=== PATIENT | female | born 1975 | race Caucasian/White ===

== ENCOUNTER 2017-01-22 15:23 | Observation (INO) | payer BC ==
[2017-01-22] MEDS ORDERED: ASPIRIN 81 MG (BABY) CHEWABLE TABLET PO ONE (15:33)
[2017-01-22] MEDS ORDERED: ONDANSETRON 4 MG/2 ML VIAL IVP ONE (15:33)
[2017-01-22] MEDS ORDERED: Sodium Chloride 0.9% 1,000 ML PRIMARY IV ONE (15:33)
[2017-01-22] MEDS ORDERED: KETOROLAC 30 MG/1 ML VIAL IVP ONE (15:33)
[2017-01-22 15:40] LABS: BASOPHILS # (AUTO) 0.03 10*3/UL; BASOPHILS % (AUTO) 0.4 % (0-1); EOSINOPHILS # (AUTO) 0.07 10*3/UL; EOSINOPHILS % (AUTO) 0.8 % (0-8); HEMATOCRIT 42.5 % (37.0-47.0); HEMOGLOBIN 14.5 g/dL (12.0-16.0); LYMPHOCYTES # (AUTO) 3.24 10*3/uL; MEAN CORPUSCULAR HEMOGLOBIN 29.3 PG (27-31); MEAN CORPUSCULAR HGB CONC 34.1 g/dL (33-37); MEAN PLATELET VOLUME 9.6 FL (7.4-12.2); MONOCYTES # (AUTO) 0.73 10*3/UL (0.3-0.8); MONOCYTES % (AUTO) 8.7 % (5-15); NEUTROPHILS # (AUTO) 4.32 10*3/UL; NEUTROPHILS % (AUTO) 51.4 % (50-80); RED BLOOD COUNT 4.95 10^6/uL (4.20-5.40)
--- NOTE | 2017-01-22 15:40 | PDOC ---
Chest Pain HPI - General Chief Complaint: Chest Pain Stated Complaint: Chest pain Date Seen by Provider: 01/22/17 Time Seen by Provider: 15:35 Source: Patient Exam Limitations: POSITIVE: No limitations Treatment Prior to Arrival: REPORTS: None Nurse's Notes Reviewed & Considered: Yes - History of Present Illness Initial Comments: Patient walked into the emergency room today with chief complaint of chest pain. Patient awoke this morning approximately 06 30 with chest pain and describes a sharp under left breast and was nonradiating. She has some associated shortness of breath. Awoke began at approximately 9 with return of symptoms. She went back to sleep and awoke at 1:30 PM with return of symptoms and radiation through to her back at that time she decided to come in and be evaluated. He denies any fever chills sweats, nausea vomiting diarrhea, she does have shortness of breath, chest pain. 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 Patient she has history of SVT. She is presently on Cardizem for her SVT. Body Location Affected: REPORTS: Chest Timing: REPORTS: Abrupt Duration: <24 hours Severity: Moderate Context: REPORTS: Sleep Quality: REPORTS: Sharpness, Stabbing Radiation: REPORTS: Back Associated Symptoms: REPORTS: Shortness of Breath Modifying Factors: improves with: None Reported Similar Symptoms Previously: No Recently seen/treated/hospitalized: No Any Prior Injuries Related to Current Complaint?: No - Patient Home Medications Home Medications: Home Medications Omeprazole 40 mg PO DAILY 01/21/14 Diltiazem 24Hr ER [Cardizem Cd] 240 mg PO DAILY 08/23/14 Aspirin 81 mg PO DAILY 01/22/17 - Patient Allergies Allergies/Adverse Reactions: Allergies Allergy/AdvReac Type Severity Reaction Status Date / Time No Known Drug Allergies Allergy NOT Verified 01/22/17 15:29 APPLICABLE Past Medical History - heen HEENT History: Denies History Cardiovascular History: Arrhythmia, Other (please comment) Additional Cardiovasular History: history of going into SVT and having PVC's started 2012 Respiratory History: Other (please comment) Additional Respiratory History: GUERRERO'S ESOPHAGUS, ESOPHAGEAL ULCERS Gastrointestinal History: GERD Additional Gastrointestinal History: GUERRERO'S ESOPHAGUS, ESOPHAGEAL ULCERS Genitourinary History: Recurrent UTI Endocrine History: Denies History Musculoskeletal History: Denies History Prosthesis or Implant: No Neurological History: Denies History Blood Disorders: Denies History Psychiatric History: Denies History History of Sexually Transmitted Diseases: No Cancer History: Denies History History of MDRO: No History of Other Communicable Diseases: No Alcohol Use: Occasionally Substance Use Type: None Previous Surgical History: Yes Type / Date of Surgery: HYSTERECTOMY, TUBAL LIGATION. CHOLECYSTECTOMY Anesthesia Reactions: No Malignant Hyperthermia: No Significant Family History: Heart disease, Cancer, Lung disease ROS - Limitations ROS Limitations: No Limitations Constitution: REPORTS: Denies Symptoms Cardiovascular: REPORTS: Chest Pain, Heart Racing Respiratory: REPORTS: Shortness Of Breath Neurological: REPORTS: Headache Gastrointestinal: REPORTS: Denies GI Symptoms Endocrine: REPORTS: Denies Symptoms Musculoskeletal: REPORTS: Back Pain Genitourinary: REPORTS: Denies Symptoms Eyes: REPORTS: Denies Symptoms ENT: REPORTS: Denies Symptoms Skin: REPORTS: Denies Skin Symptoms Lympathic: REPORTS: Denies Lympathic Symptoms Immunologic: POSITIVE: Denies Symptoms Psychiatric: POSITIVE: Anxiety Chest Pain PE - General Appearance General Appearance: REPORTS: Alert, Cooperative, No Evidence of Trauma, Anxious , Moderate Distress - HEENT HEENT: POSITIVE: Head Inspection Nml, Eyes Inspection Nml, Ears Inspection Nml, Nose Inspection Nml, PERRL, EOMI - Neck Neck: REPORTS: Normal Inspection - Respiratory Respiratory: REPORTS: Breath Sounds Normal, Chest Non-Tender, Wheezes - Cardiovascular Cardiovascular: REPORTS: Regular Rate and Rhythm, Heart Sounds Normal ( Nondisplaced point of maximal impact is palpated.) Peripheral Pulses: Radial (R): 3+, Radial (L): 3+, Dorsalis-pedis (R): 3+, Dorsalis-pedis (L): 3+ - Abdomen Abdomen: Soft: (All Quadrants), Normal Bowel Sounds: (All Quadrants), Denies Tenderness: (All Quadrants) - Skin Skin: REPORTS: Intact, Normal For Race, Warm, Dry, No Rash - Extremities Extremity: Non-Tender: (All Extremities), Normal ROM: (All Extremities), Normal Inspection: (All Extremities) - Neurological / Psychological Neurological: POSITIVE: Affect Apporpriate, Oriented X3 Chest Pain Progress - Results Reviewed by me Xrays/CTs/US Reviewed by me: Yes Discussed with Radiologist: No Lab Results Reviewed: Yes Lab Results:: Laboratory Results 01/22/17 01/22/17 01/22/17 Range/Units 15:30 16:19 16:32 WBC 8.41 (4.8-10.8) 10^3/uL RBC 4.95 (4.20-5.40) 10^6/uL Hgb 14.5 (12.0-16.0) g/dL Hct 42.5 (37.0-47.0) % MCV 85.9 (81-99) FL MCH 29.3 (27-31) PG MCHC 34.1 (33-37) g/dL RDW Std Deviation 39.3 (39-50) fL RDW Coeff of Agnieszka 12.7 (11.5-14.5) % Plt Count 287 (140-350) 10*3/uL MPV 9.6 (7.4-12.2) FL Immature Gran % (Auto) 0.2 (0-5) % Neut % (Auto) 51.4 (50-80) % Lymph % (Auto) 38.5 (10-50) % [place] % (Auto) 8.7 (5-15) % Eos % (Auto) 0.8 (0-8) % Baso % (Auto) 0.4 (0-1) % Immature Gran # (Auto) 0.02 10*3/UL Neut # (Auto) 4.32 10*3/UL Lymph # (Auto) 3.24 10*3/uL [place] # (Auto) 0.73 (0.3-0.8) 10*3/UL Eos # (Auto) 0.07 10*3/UL Baso # (Auto) 0.03 10*3/UL WBC Morphology Comment Normal morphology (NORM) Plt Morphology Comment Normal morphology (NORM) RBC Morph Comment Normal morphology (NORM) ESR 2 (0-20) MM/HR D-Dimer 0.20 (0.00-0.59) mg/L Sodium 141 (135-145) meq/L Potassium 3.5 L (3.8-5.2) meq/L Chloride 107 (98-112) meq/L Carbon Dioxide 21 L (23-33) meq/L Anion Gap 13 (5-20) BUN 10 (7-22) mg/dL Creatinine 0.6 (0.50-1.20) mg/dL Estimated GFR > 60 (>60 ml/min/1.73m(2)) BUN/Creatinine Ratio 16.66 (6-20) Glucose 98 (78-110) mg/dL Calculated Osmolality 290.0 (267-292) mOsm/kg Calcium 9.4 (8.7-10.7) mg/dL Magnesium 1.8 (1.6-2.4) mg/dL Total Bilirubin 0.6 (0.3-1.2) mg/dL AST 29 (8-39) IU/L ALT 21 (9-52) IU/L Alkaline Phosphatase 85 (38-126) IU/L Troponin I < 0.012 (< 0.040) ng/mL C-Reactive Protein 0.6 (0.0-0.9) mg/dL Total Protein 7.4 (6.1-8.0) g/dL Albumin 4.4 (3.5-4.8) g/dL Globulin 3.0 (2.50-4.10) g/dL Albumin/Globulin Ratio 1.40 (1.3-2.0) mg/g TSH 0.770 (0.2700-4.2000) uIU/mL EKG Interpretation:: POSITIVE: Normal Sinus Rhythm - Patient's Progress Pain Medication Addressed: POSITIVE: Yes Re-Examine Time: 16:42 Status: POSITIVE: Improved MDM / ED Course: Patient was examined, an IV started, chest x-ray obtained, EKG obtained, blood drawn and sent to the lab for studies. ER course: Patient received an IV of normal saline, sublingual nitroglycerin. First 2 doses of sublingual nitroglycerin resulted in significant improvement of her pain. Her pain began to return and she received a third dose of sublingual nitroglycerin with resolution of pain. She received Toradol, and Zofran. Findings: Troponin is normal, EKG is normal sinus rhythm per my interpretation. Chest x-ray per my review shows no acute cardiopulmonary decompensation. Magnesium is normal, TSH is normal, inflammatory markers of CRP and ESR are both normal. CBC is unremarkable, comprehensive metabolic panel is within normal limits. Assessment: Chest pain relieved with sublingual nitroglycerin, admission for rule out acute coronary syndrome. Plan: Admission. Quality Measure Initiative: CP/AMI: POSITIVE: EKG, ASA Quality Measure Initiative: CAP: POSITIVE: CXR or CT - Consult Consult (If Yes, Name of Consulting MD & Time Called): Yes (Dr. Christina 16:40) Consulting MD will see pt:: POSITIVE: [facility] [place] Admit Counseled: POSITIVE: Patient, Family, RE: Lab Results, RE: Radiology Results, RE : DX Patient Care Time - Estimated PCT Patient Care Time (In Minutes): 30 Vital Signs - Recent Vital Signs Vital Signs: Vital Signs (Last 8 hours) Temp Pulse Pulse Resp BP Pulse Ox 01/22/17 15:25 75 01/22/17 15:23 97.1 F 87 17 127/85 97 - VS Reviewed Vital Signs Reviewed: Yes Discharge Clinical Impression: Chest pain Discharge Disposition: Admit to Inpatient Condition: Stable Date Decision to Admit to Inpatient: 01/22/17 Time Decision to Admit to Inpatient: 16:43
[2017-01-22] MEDS: NITROGLYCERIN 0.4 MG SL TAB (BOTTLE OF 3) SL ONE ×2 (15:47→16:05)
[2017-01-22 15:48] LABS: BLOOD UREA NITROGEN 10 mg/dL (7-22); BUN/CREATININE RATIO 16.66 (6-20); C-REACTIVE PROTEIN 0.6 mg/dL (0.0-0.9); CALCIUM 9.4 mg/dL (8.7-10.7); EST GLOMERULAR FILTRATION > 60 (>60 ml/min/1.73m(2)); MAGNESIUM 1.8 mg/dL (1.6-2.4); SERUM ALBUMIN 4.4 g/dL (3.5-4.8)
[2017-01-22 15:49] LABS: PLATELET MORPHOLOGY COMMENT NORMAL MORPHOLOGY (NORM); RBC MORPHOLOGY COMMENT NORMAL MORPHOLOGY (NORM); WBC MORPHOLOGY COMMENT NORMAL MORPHOLOGY (NORM)
[2017-01-22 16:24] LABS: ERYTHROCYTE SEDIMENTATION RATE 2 MM/HR (0-20)
[2017-01-22] MEDS ORDERED: Famotidine Inj 20 MG in Normal Saline Flush 10 ML IVP ONE (16:50)
[2017-01-22] MEDS: fentaNYL Inj 100 MCG/2 ML VIAL IVP PRN ×2 (17:04→19:24)
[2017-01-22] MEDS ORDERED: LIDOCAINE W/ SODIUM BICARB 0.5 ML SYR SUBD PRN (17:19)
--- NOTE | 2017-01-22 17:25 | EKG ---
[address] [address] Measurements Intervals [place] Rate: 75 P: 54 AR: 137 QRS: 25 QRSD: 109 T: 21 QT: 364 QTc: 393 Interpretive Statements SINUS RHYTHM Compared to ECG 03/16/2016 08:46:38 Intraventricular conduction delay no longer present Electronically Signed On 01-22-17 20:23:46 MST by Mario Tidwell [email or web address]
--- NOTE | 2017-01-22 19:20 | DI ---
AP CHEST X-RAY, 01/22/2017 3:33 PM : Clinical History: Chest pain. Previous Exam: 03/15/2016. There is no acute soft tissue or bony abnormality. Heart size is normal. Lungs are clear. Mediastinal structures are normal. There are no pulmonary nodules. Reading: Normal chest x-ray. There has been no interval change.
[2017-01-22] MEDS: NORMAL SALINE 10 ML SYRINGE FLUSH IVP PRN (19:25)
[2017-01-22 21:38] LABS: TROPONIN I < 0.012 ng/mL (< 0.040)
--- NOTE | 2017-01-22 22:38 | PDOC ---
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 past medical history is as VT and Loya's esophagus she was working this morning and around 6:30 she had some chest pain it was pretty sharp that radiated under her left breast mild shortness of breath no diaphoresis went back to sleep and around 1:30 PM the pain appeared again and decided to come to the ER to be evaluated she has a history of an anomalous coronary artery had previous stress test and echo which were both normal She is resting at present time the pain is almost subsided down to 1 Past Medical History Medical History: Loya's esophagus, SVT Tobacco Use: Former Smoker Substance Use Type: None Medication / Allergies Home Medications: Home Medications Medication Instructions Recorded Confirmed Type Omeprazole 40 mg PO DAILY 01/21/14 01/22/17 History Diltiazem 24Hr ER [Cardizem Cd] 240 mg PO DAILY 08/23/14 01/22/17 History Aspirin 81 mg PO DAILY 01/22/17 01/22/17 History Allergies/Adverse Reactions: Allergies Allergy/AdvReac Type Severity Reaction Status Date / Time No Known Drug Allergies Allergy NOT Verified 01/22/17 15:29 APPLICABLE Review of Systems - Respiratory Respiratory: DENIES: Negative System Review, Cough, Sputum, Dyspnea At Rest, Dyspnea with Exertion, Pleuritic Pain, Hemoptysis, Wheezing, Other, See HPI - Cardiovascular Cardiovascular: REPORTS: Chest Pain - Gastrointestinal Gastrointestinal / Abdominal: DENIES: Negative System Review, Nausea, Vomiting, Diarrhea, Constipation, Abdominal Pain, Bloody Stool, Poor Appetite, Heartburn, Regurgitation, Bloating, Lactose Intolerance, Melena, Bright Red Blood Per Rectum, Other, See HPI Exam - Vitals Vital Signs: Vital Signs Temperature 98.3 F Temperature Source Temporal Artery Scan Pulse Rate [Pulse Oximeter] 60 Respiratory Rate 16 Blood Pressure [Right Arm] 105/63 Pulse Ox 97 Oxygen Flow Rate 2 Oxygen Delivery Method Nasal Cannula Height 5 ft 3 in Weight 81.284 kg - General General Appearance: POSITIVE: No Acute Distress, Cooperative - Eye Eye Exam: POSITIVE: Normal Appearance, PERRL, EOMI - Neck Neck Exam: POSITIVE: Normal Inspection, Full ROM - Respiratory Respiratory Exam: POSITIVE: Clear to Auscultation - Bilaterally, Breathing Non Labored, Normal To Percussion - Cardiovascular Cardiovascular Exam: POSITIVE: RRR, No Murmur, No Clicks, No Gallops - GI/Abdominal GI/Abdominal Exam: POSITIVE: Normal Bowel Sounds, Non Tender, Non Distended, Soft Results - Labs CBC and BMP: 01/22/17 15:30 01/22/17 15:30 Labs - Last 24 Hours: Laboratory Results 01/22/17 Range/Units 21:11 Total Creatine Kinase 35 (30-135) IU/L Troponin I < 0.012 (< 0.040) ng/mL Assessment and Plan - Patient Problems (1) Chest pain Current Visit: Yes Status: Acute Comment: Continue usual medication with Cardizem morphine for pain sublingual nitroglycerin, order a Lexiscan stress test rule out with serial troponins
[2017-01-23 04:39] LABS: BLOOD UREA NITROGEN 13 mg/dL (7-22); BUN/CREATININE RATIO 21.66 (6-20); CALCIUM 8.8 mg/dL (8.7-10.7); EST GLOMERULAR FILTRATION > 60 (>60 ml/min/1.73m(2)); SERUM ALBUMIN 3.6 g/dL (3.5-4.8)
[2017-01-23] MEDS ORDERED: OMEPRAZOLE 40 MG CAPSULE PO SCH (07:00)
[2017-01-23] MEDS: fentaNYL Inj 100 MCG/2 ML VIAL IVP PRN (08:23)
--- NOTE | 2017-01-23 13:37 | PDOC(PROG) ---
Interval History: Still has a very mild pain we'll also has heartburn patient was diagnosed with Loay's esophagus by Dr. levine Objective : Data - Labs CBC and BMP: 01/22/17 15:30 01/23/17 04:15 Labs - Last 24 Hours: Laboratory Results 01/22/17 01/23/17 Range/Units 21:11 04:15 D-Dimer < 0.19 (0.00-0.59) mg/L Sodium 141 (135-145) meq/L Potassium 3.8 (3.8-5.2) meq/L Chloride 108 (98-112) meq/L Carbon Dioxide 23 (23-33) meq/L Anion Gap 10 (5-20) BUN 13 (7-22) mg/dL Creatinine 0.6 (0.50-1.20) mg/dL Estimated GFR > 60 (>60 ml/min/1.73m(2)) BUN/Creatinine Ratio 21.66 H (6-20) Glucose 91 (78-110) mg/dL Calculated Osmolality 291.0 (267-292) mOsm/kg Calcium 8.8 (8.7-10.7) mg/dL Total Bilirubin 0.4 (0.3-1.2) mg/dL AST 16 (8-39) IU/L ALT 24 (9-52) IU/L Alkaline Phosphatase 69 (38-126) IU/L Total Creatine Kinase 35 (30-135) IU/L Troponin I < 0.012 < 0.012 (< 0.040) ng/mL Total Protein 6.1 (6.1-8.0) g/dL Albumin 3.6 (3.5-4.8) g/dL Globulin 2.5 (2.50-4.10) g/dL Albumin/Globulin Ratio 1.40 (1.3-2.0) mg/g Objective : Exam - General General Appearance: Cooperative - Respiratory Respiratory Exam: Clear to Auscultation - Bilaterally, Breathing Non Labored, Normal To Percussion - Cardiovascular Cardiovascular Exam: RRR, No Murmur, No Clicks, No Gallops Assessment and Plan - Patient Problems (1) Chest pain Current Visit: Yes Status: Acute Comment: Lexiscan stress test tomorrow resting part was done today (2) Barretts esophagus Current Visit: Yes Status: Acute Comment: We'll start Protonix IV twice a day
[2017-01-23] MEDS ORDERED: Pantoprazole Inj 40 MG in Normal Saline Flush 10 ML IVP SCH (13:38)
[2017-01-23] MEDS: DILTIAZEM CD 240 MG CAP PO SCH (13:39)
[2017-01-23] MEDS: Pantoprazole Inj 40 MG in Normal Saline Flush 10 ML IVP SCH (21:31)
[2017-01-23] MEDS: NORMAL SALINE 10 ML SYRINGE FLUSH IVP PRN (21:31)
[2017-01-24 00:54] VITALS: RESP 16
[2017-01-24] MEDS ORDERED: ASPIRIN EC 81 MG TABLET PO SCH (09:00)
[2017-01-24] MEDS ORDERED: Pantoprazole Inj 40 MG in Normal Saline Flush 10 ML IVP SCH (09:00)
[2017-01-24] MEDS ORDERED: LIDOCAINE W/ SODIUM BICARB 0.5 ML SYR ONE (09:41)
[2017-01-24] MEDS: Pantoprazole Inj 40 MG in Normal Saline Flush 10 ML IVP SCH (10:32)
[2017-01-24] MEDS: DILTIAZEM CD 240 MG CAP PO SCH (10:32)
--- NOTE | 2017-01-24 11:21 | STRESSTEST ---
[facility] Interpretive Statements This is a 41 YO female with chest pain, history of a muscle steel normal variant who presented with chest pain. Resolved now. Resting EKG NSR. Carrie scan stress test ordered. stress component today. Test complete and patient felt flushed. Plan: images and review radiology report. [email or web address]
[2017-01-24 16:15] VITALS: TEMP 97.9
--- NOTE | 2017-01-24 16:20 | DI ---
2 DAY LEXISCAN STRESS & REST MYOCARDIAL PERFUSION SCANS, 01/23/2017-01/24/2017: Clinical History: Chest pain. Previous Exam: None at this facility. Monitoring Physician: Dr. Pawel Guerra. Dose: Stress dose: 32 mCi on 01/24/2017. Rest dose: 35 mCi on 01/23/2013. Quantitative Analysis: Santech program with low dose limited CT chest scan attenuation correctio n. Exam Quality: Excellent. Rejected Beats: Stress = 1%; Rest = 4%. HR: Stress = 61-67 b/m; Rest = 62-7 0 b/m. Left ventricular chamber sizes are normal at stress and rest. Transient ischemic dilatation ratio is 1.00 (normal Edwardo TID <= 1.22; normal Lexiscan TID <= 1.33). Stress LVEF: 70%; rest LVEF: 74%. The a ttenuated corrected and non-attenuated corrected scans show the same fixed defect in the septum but i t is more pronounced on the attenuated corrected scans. The non-attenuated corrected scans shows a sm all ischemic area in the anteroapical segment and this is shown to be a fixed defect that is larger o n the attenuated corrected scans. All other perea perfuse normally. There is normal stress and rest w all motion and thickening and therefore the abnormal areas on the perfusion scans may represent nontr ansmural infarcts. Limited CT scans of the heart show no coronary artery calcifications. There are no lung nodules or enlarged nodes. Readin. Normal stress and rest left ventricular chamber size. Transient ischemic dilatation ratio is norm al at 1.00. 2. Normal stress and rest LVEF values of 70%, and 74%, respectively. 3. Both the attenuated and non-attenuated scans show fixed defects in the septum. The non-attenuated scans show a very small anteroapical reversible defect and the attenuated corrected scans show a fix ed defect that is larger in the anteroapical segment. The fact that the wall motion and myocardial th ickening in both of these areas is normal at stress and rest with suggest that these defects are nont ransmural or subendocardial. 4. The low dose stress and rest CT scans of the chest through the region of the heart show no coron calcifications. There are no pulmonary nodules or masses. There is no mediastinal or hilar adenop athy.
--- NOTE | 2017-01-24 18:32 | DCSUMMARY ---
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 She ruled out for coronary artery disease on her studies and a stress test was done and it revealed that she had a very small reversible defect that was overlying by scar. While motion was normal and it was considered overall a negative stress test. I spoke with the patient's chief librarian branch or department, Dr. Dickinson, and he agreed. However, given the bridging phenomenon, he felt this could be causing some of the patient's discomfort and felt it would be reasonable to now trial Imdur therapy in addition to her diltiazem and aspirin and omeprazole regimen. He like to see her in the clinic and I'll inform the patient that. Currently, no completes of chest pain, shortness of breath, nausea or vomiting. The patient is "ready to go home". Assessment and Plan: 1. As per discharge assessments noted 2. Disposition: Patient is discharged home. 3. Condition on discharge, stable and improved. 4. Diet: regular diet 5. Activities: resume normal activities 6. Follow-Up: 1. Primary care provider in [address] Dickinson in the next week 7. Medications at the Time of Discharge: Home Medications Medication Instructions Recorded Confirmed Type Omeprazole 40 mg PO DAILY 01/21/14 01/22/17 History Diltiazem 24Hr ER [Cardizem Cd] 240 mg PO DAILY 08/23/14 01/22/17 History Aspirin 81 mg PO DAILY 01/22/17 01/22/17 History Isosorbide Mononitrate ER [Imdur] 30 mg PO DAILY #30 tab.sr.24h 01/24/17 Rx 8. Time, care, counseling and coordination of care for this discharge is less than 30 minutes. Exam - Vitals Vital Signs: Vital Signs Temperature 97.9 F Temperature Source Temporal Artery Scan Pulse Rate [Apical] 72 Pulse Rate [Pulse Oximeter] 67 Pulse Rate [Telemetry] 73 Pulse Rate 69 Respiratory Rate 16 Blood Pressure [Right Arm] 107/63 Pulse Ox 96 Oxygen Flow Rate 2 Oxygen Delivery Method Room Air Height 5 ft 3 in Weight 181 lb 9.6 oz - General General Appearance: POSITIVE: No Acute Distress, Cooperative - Eye Eye Exam: POSITIVE: No Scleral Icterus - Respiratory Respiratory Exam: POSITIVE: Clear to Auscultation - Bilaterally, Breathing Non Labored - Cardiovascular Cardiovascular Exam: POSITIVE: RRR, No Murmur, No Clicks, No Gallops, No Rubs, No JVD - GI/Abdominal GI/Abdominal Exam: POSITIVE: Normal Bowel Sounds, Non Tender, Non Distended, Soft - Extremities Extremities Exam: POSITIVE: No Clubbing Present, No Edema Present, No Cyanosis Present - Neurological Neurological Exam: POSITIVE: Alert, Oriented x 3, No Facial Droop, Speech Intact / Clear, Moves All Extremities Equally Data Perinent Studies: Laboratory Results 01/22/17 01/22/17 01/22/17 Range/Units 15:30 16:19 16:32 WBC 8.41 (4.8-10.8) 10^3/uL RBC 4.95 (4.20-5.40) 10^6/uL Hgb 14.5 (12.0-16.0) g/dL Hct 42.5 (37.0-47.0) % MCV 85.9 (81-99) FL MCH 29.3 (27-31) PG MCHC 34.1 (33-37) g/dL RDW Std Deviation 39.3 (39-50) fL RDW Coeff of Agnieszka 12.7 (11.5-14.5) % Plt Count 287 (140-350) 10*3/uL MPV 9.6 (7.4-12.2) FL Immature Gran % (Auto) 0.2 (0-5) % Neut % (Auto) 51.4 (50-80) % Lymph % (Auto) 38.5 (10-50) % [place] % (Auto) 8.7 (5-15) % Eos % (Auto) 0.8 (0-8) % Baso % (Auto) 0.4 (0-1) % Immature Gran # (Auto) 0.02 10*3/UL Neut # (Auto) 4.32 10*3/UL Lymph # (Auto) 3.24 10*3/uL [place] # (Auto) 0.73 (0.3-0.8) 10*3/UL Eos # (Auto) 0.07 10*3/UL Baso # (Auto) 0.03 10*3/UL WBC Morphology Comment Normal morphology (NORM) Plt Morphology Comment Normal morphology (NORM) RBC Morph Comment Normal morphology (NORM) ESR 2 (0-20) MM/HR D-Dimer 0.20 (0.00-0.59) mg/L Sodium 141 (135-145) meq/L Potassium 3.5 L (3.8-5.2) meq/L Chloride 107 (98-112) meq/L Carbon Dioxide 21 L (23-33) meq/L Anion Gap 13 (5-20) BUN 10 (7-22) mg/dL Creatinine 0.6 (0.50-1.20) mg/dL Estimated GFR > 60 (>60 ml/min/1.73m(2)) BUN/Creatinine Ratio 16.66 (6-20) Glucose 98 (78-110) mg/dL Calculated Osmolality 290.0 (267-292) mOsm/kg Calcium 9.4 (8.7-10.7) mg/dL Magnesium 1.8 (1.6-2.4) mg/dL Total Bilirubin 0.6 (0.3-1.2) mg/dL AST 29 (8-39) IU/L ALT 21 (9-52) IU/L Alkaline Phosphatase 85 (38-126) IU/L Total Creatine Kinase (30-135) IU/L Troponin I < 0.012 (< 0.040) ng/mL C-Reactive Protein 0.6 (0.0-0.9) mg/dL Total Protein 7.4 (6.1-8.0) g/dL Albumin 4.4 (3.5-4.8) g/dL Globulin 3.0 (2.50-4.10) g/dL Albumin/Globulin Ratio 1.40 (1.3-2.0) mg/g TSH 0.770 (0.2700-4.2000) uIU/mL 01/22/17 01/23/17 Range/Units 21:11 04:15 WBC (4.8-10.8) 10^3/uL RBC (4.20-5.40) 10^6/uL Hgb (12.0-16.0) g/dL Hct (37.0-47.0) % MCV (81-99) FL MCH (27-31) PG MCHC (33-37) g/dL RDW Std Deviation (39-50) fL RDW Coeff of Agnieszka (11.5-14.5) % Plt Count (140-350) 10*3/uL MPV (7.4-12.2) FL Immature Gran % (Auto) (0-5) % Neut % (Auto) (50-80) % Lymph % (Auto) (10-50) % [place] % (Auto) (5-15) % Eos % (Auto) (0-8) % Baso % (Auto) (0-1) % Immature Gran # (Auto) 10*3/UL Neut # (Auto) 10*3/UL Lymph # (Auto) 10*3/uL [place] # (Auto) (0.3-0.8) 10*3/UL Eos # (Auto) 10*3/UL Baso # (Auto) 10*3/UL WBC Morphology Comment (NORM) Plt Morphology Comment (NORM) RBC Morph Comment (NORM) ESR (0-20) MM/HR D-Dimer < 0.19 (0.00-0.59) mg/L Sodium 141 (135-145) meq/L Potassium 3.8 (3.8-5.2) meq/L Chloride 108 (98-112) meq/L Carbon Dioxide 23 (23-33) meq/L Anion Gap 10 (5-20) BUN 13 (7-22) mg/dL Creatinine 0.6 (0.50-1.20) mg/dL Estimated GFR > 60 (>60 ml/min/1.73m(2)) BUN/Creatinine Ratio 21.66 H (6-20) Glucose 91 (78-110) mg/dL Calculated Osmolality 291.0 (267-292) mOsm/kg Calcium 8.8 (8.7-10.7) mg/dL Magnesium (1.6-2.4) mg/dL Total Bilirubin 0.4 (0.3-1.2) mg/dL AST 16 (8-39) IU/L ALT 24 (9-52) IU/L Alkaline Phosphatase 69 (38-126) IU/L Total Creatine Kinase 35 (30-135) IU/L Troponin I < 0.012 < 0.012 (< 0.040) ng/mL C-Reactive Protein (0.0-0.9) mg/dL Total Protein 6.1 (6.1-8.0) g/dL Albumin 3.6 (3.5-4.8) g/dL Globulin 2.5 (2.50-4.10) g/dL Albumin/Globulin Ratio 1.40 (1.3-2.0) mg/g TSH (0.2700-4.2000) uIU/mL Patient Problems - Patient Problem List (1) Chest pain Current Visit: Yes Status: Acute Qualifiers: Chest pain type: other chest pain Qualified Description: Other chest pain Qualifier Code(s): (R07.89) Other chest pain, (R07.8) Other chest pain (2) Barretts esophagus Current Visit: Yes Status: Acute Qualifiers: Loya's esophagus type: with dysplasia of unspecified degree Qualified Description: Loya's esophagus with dysplasia Qualifier Code(s ): (K22.719) Loya's esophagus with dysplasia, unspecified, (K22.71) Loya' s esophagus with dysplasia
== END 2017-01-24 19:09 | disposition home or self-care (01) ==
LOC: ER 15:23 → MED/SURG 17:18
PROVIDERS: ADMIT Internal Medicine; ATTEND Internal Medicine
DX: R07.89 Other chest pain (principal); K22.70 Barrett's esophagus without dysplasia
CPT/HCPCS: 36415 ×2; 71010; 78452; 80053 ×2; 82550; 83735; 84443; 84484 ×2; 85025; 85379 ×2; 85652; 86140; 93005; 93010; 93017; 94761 ×3; 96361; 96374 ×3; 96375 ×2; 96376; 99284 ×2; A9500; J1885; J2785; J3010 ×2; J2405; J3490; J7030

== ENCOUNTER 2017-02-12 11:47 | Emergency (ER) | payer OTHER, BC ==
[2017-02-12 12:07] VITALS: RESP 16; TEMP 97.9
[2017-02-12 14:24] LABS: HIV ANTIBODY NEGATIVE (N); HIV-1 P24 ANTIGEN NEGATIVE (N)
--- NOTE | 2017-02-13 07:37 | PDOC ---
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 Source patient has no known blood borne illnesses. Patient has no known history of blood borne illnesses. Patient washed her eye out after the incident. She is asymptomatic. Have you received a tetanus shot in the past 10 years?: Yes Body Location Affected: REPORTS: Other (Right eye as above) Timing: REPORTS: Abrupt Duration: 1/2 hour Severity: Mild Quality: REPORTS: Other (No pain anywhere) Context: REPORTS: Activity (Helping to care for a emergency room patient) Modifying Factors: improves with: Nothing Similar Symptoms Previously: No Recent Care Received: REPORTS: Denies Any Prior Injuries Related to Current Complaint?: No - Patient Home Medications Home Medications: Home Medications Omeprazole 40 mg PO DAILY 01/21/14 Diltiazem 24Hr ER [Cardizem Cd] 240 mg PO DAILY 08/23/14 Aspirin 81 mg PO DAILY 01/22/17 Isosorbide Mononitrate ER [Imdur] 30 mg PO DAILY #30 tab.sr.24h 01/24/17 - Patient Allergies Allergies/Adverse Reactions: Allergies Allergy/AdvReac Type Severity Reaction Status Date / Time No Known Drug Allergies Allergy NOT Verified 02/12/17 11:57 APPLICABLE Past Medical History - heen HEENT History: Denies History Cardiovascular History: Arrhythmia, Other (please comment) Additional Cardiovasular History: history of going into SVT and having PVC's started 2012, CARDIAC MUSCLE BRIDGE Respiratory History: Other (please comment) Additional Respiratory History: GUERRERO'S ESOPHAGUS, ESOPHAGEAL ULCERS Gastrointestinal History: GERD Additional Gastrointestinal History: GUERRERO'S ESOPHAGUS, ESOPHAGEAL ULCERS Genitourinary History: Recurrent UTI Endocrine History: Denies History Musculoskeletal History: Denies History Prosthesis or Implant: No Neurological History: Denies History Blood Disorders: Denies History Psychiatric History: Denies History History of Sexually Transmitted Diseases: No Female Reproductive History: Hysterectomy Additional Female Reproductive History: PARTIAL Obstetrical History: Denies History Cancer History: Denies History In Past Year Been Physically Harmed or Verbally Threatened: No (PER PATIENT) History of MDRO: No History of Other Communicable Diseases: No Tobacco Use: Former Smoker Alcohol Use: Occasionally Substance Use Type: None Previous Surgical History: Yes Type / Date of Surgery: PARTIAL HYSTERECTOMY, TUBAL LIGATION. CHOLECYSTECTOMY Anesthesia Reactions: No Malignant Hyperthermia: No Family History of Malignant Hyperthermia: No Significant Family History: Heart disease, Cancer, Lung disease Past Medical History Reviewed: Reviewed - No Changes ROS - Limitations ROS Limitations: No Limitations Constitution: REPORTS: Denies Symptoms Cardiovascular: REPORTS: Denies Cardiac Symptoms Respiratory: REPORTS: Denies Resp Symptoms Neurological: REPORTS: Denies Neuro Symptoms Gastrointestinal: REPORTS: Denies GI Symptoms Endocrine: REPORTS: Denies Symptoms Musculoskeletal: REPORTS: Denies MS Symptoms Genitourinary: REPORTS: Denies Symptoms Eyes: REPORTS: Denies Symptoms ENT: REPORTS: Denies Symptoms Skin: REPORTS: Denies Skin Symptoms Lympathic: REPORTS: Denies Lympathic Symptoms Immunologic: POSITIVE: Denies Symptoms Psychiatric: POSITIVE: Denies Psych Symptoms General Adult Exam - General Appearance General Appearance: POSITIVE: Alert, Cooperative, No Acute Distress, No Evidence of Trauma - HEENT HEENT: POSITIVE: Head Inspection Nml, Eyes Inspection Nml, Ears Inspection Nml, Nose Inspection Nml, Oral/Dental Inspect. Nml, Pharynx Inspect. 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 Appropriate employee exposure laboratory tests ordered. Status: POSITIVE: Improved - Consult Counseled: POSITIVE: Patient, RE: DX, RE: Need for F/U Patient Care Time - Estimated PCT Patient Care Time (In Minutes): 15 Vital Signs - VS Reviewed Vital Signs Reviewed: Yes Discharge Clinical Impression: Employee exposure to blood Discharge Disposition: Discharged to Home Condition: Stable Patient Instructions Given at Discharge: Body Substance Exposure (ED) Additional Instructions: Return anytime if condition worsens. Follow Up With: LENIN BHATIA [Primary Care Provider] -
== END 2017-02-12 13:30 | disposition home or self-care (01) ==
LOC: ER 11:47
DX: Z77.21 Contact with and (suspected) exposure to potentially hazardous body fluids (principal); Y92.238 Other place in hospital as the place of occurrence of the external cause; Y99.0 Civilian activity done for income or pay
CPT/HCPCS: 99282